=== PATIENT | male | born 1940 | race Caucasian/White ===

== ENCOUNTER 2016-05-14 07:29 | Day surgery (SDC) | payer MEDICARE, OTHER ==
--- NOTE | 2016-05-09 17:04 | PREOPHP ---
DATE OF ADMISSION: 05/14/2016 HISTORY OF PRESENT ILLNESS: This 75-year-old gentleman is admitted for elective cataract surgery of the right eye. The patient has had progressive deterioration of vision in the right eye for the pa st 2 years without prior history of eye disease or injury. The patient has a positive systemic hist ory for hypertension and hypercholesterolemia. CURRENT MEDICATIONS INCLUDE: 1. Lisinopril. 2. Lipitor. 3. Pletal. 4. Metoprolol. 5. Plavix. 6. Aspirin. The patient has been instructed to discontinue the aspirin and Plavix prior to surgery. ALLERGIES: THERE ARE NO KNOWN ALLERGIES. PHYSICAL EXAMINATION: Visual acuity best corrected is hand motion vision in the right eye and 20/60 in the left eye. Slit lamp examination reveals anterior cortical nuclear sclerotic and posterior s ubcapsular cataract changes in the right eye creating a near mature cataract. The left eye has ante rior cortical and nuclear sclerotic cataract opacities. Applanation tonometry is 15 mmHg. Examinat ion of the retina is obscured by the advanced cataract and the left eye appears within normal limits . DIAGNOSIS: Cataract, right eye. PLAN: Cataract extraction with lens implant, right eye. The risks and alternatives to the surgery have been discussed with the patient as well as the limitation of prognosis due to the inability to see the retina in the right eye. The patient understands this and agrees to proceed with surgery in hopes of obtaining improvement of visual acuity leading to a greater ability to perform activities of daily living. Dictated By: KAMILAH DE LA CRUZ/LILY Conf#: [id number] DID#: [id number]
[~2016-05-14] VITALS: Ht 172.7 cm; Wt 56.3 kg
[2016-05-14] VITALS (7 sets, daily range): BP systolic 136–166; BP diastolic 61–74; PULSE 52–60; RESP 16–24; Ht 172.7 cm; Wt 56.3 kg
[~2016-05-14 07:29] MED LIST: ACET-141 PO; ASPI-535 PO; ATOR10TA65 PO; CILO50TA PO; CLOP75TA19 PO; ERGO500014 PO; FOLI-49 PO; LISI-313 PO; METO-448 PO
--- NOTE | 2016-05-14 08:17 | HPN ---
Date/Time of Note Date/Time of Note DATE: 05/14/16 TIME: 08:17 Interval H&P Admission Note Pt. seen H&P reviewed: No system changes KAMILAH PASCUAL MD May 14, 2016 08:17
[2016-05-14] MEDS ORDERED: TROPICAMIDE 1% 2 ML OPH OPER SCH (08:30)
[2016-05-14] MEDS ORDERED: CIPROFLOXACIN 0.3% 2.5 ML OPH OPER SCH (08:30)
[2016-05-14] MEDS ORDERED: CYCLOPENTOLATE/PHENYLEPH 2 ML OPH OPER SCH (08:30)
[2016-05-14] MEDS ORDERED: DICLOFENAC 0.1% 2.5 ML OPH OPER SCH (08:30)
[2016-05-14] MEDS ORDERED: LISI10TA2 PO (08:40)
[2016-05-14] MEDS ORDERED: PROPOFOL 20 ML ONE (11:49)
[2016-05-14] MEDS ORDERED: CEFAZOLIN 1 GM INJ INJ ONE (11:53)
[2016-05-14] MEDS ORDERED: DEXAMETHASONE 4 MG/ML 1 ML INJ INJ ONE (11:53)
[2016-05-14] MEDS ORDERED: CARBACHOL 0.01% 1.5 ML OPH INJ INJ ONE (11:54)
[2016-05-14] MEDS ORDERED: HYALURONATE/CHONDROITIN 1ML OPH INJ ONE (12:10)
[2016-05-14] MEDS ORDERED: DEXAMETHASONE 4 MG/ML 1 ML INJ ONE (12:10)
[2016-05-14] MEDS ORDERED: LIDOCAINE 4% (MPF) 5 ML INJ ONE (12:10)
[2016-05-14] MEDS ORDERED: CARBACHOL 0.01% 1.5 ML OPH INJ ONE (12:11)
--- NOTE | 2016-05-14 12:45 | OPR ---
DATE OF OPERATION: 05/14/2016 PREOPERATIVE DIAGNOSIS: Mature cataract, right eye. POSTOPERATIVE DIAGNOSIS: Mature cataract, right eye. OPERATION PERFORMED: Cataract extraction with lens implant, right eye. SURGEON: Kamilah eVnegas MD ANESTHESIA: Dr. Abel OPERATION: Phacoemulsification with posterior chamber intraocular lens implant, right eye. PROCEDURE: The patient was brought to the operating room and placed on the table with an IV in plac e and the patient attached to an personnel monitor. Oxygen was given via face mask. After some intravenous sedation was administered, local anesthesia was given using Xylocaine 2% with epinephrine, mixed with Marcaine 0.5%. This was given in a lid block and retrobulbar injection. The patient was then prepped and draped in the usual sterile manner. A wire lid speculum was inserted between the lids of the right eye. A Superblade was used to enter t he anterior chamber at the corneoscleral limbus at the 10:30 o'clock position. A separate incision w as made using a 3.0-mm keratome which entered the corneoscleral junction at the 12 o'clock position. Through this 3-mm opening, an irrigating cystitome was introduced into the anterior chamber. The ch madison was filled with Viscoat and an anterior capsulotomy was performed. Balanced salt solution was then used for hydrodissection of the lens. A phacoemulsification handpiece was then brought into th e field and introduced into the anterior chamber. The lens nucleus was emulsified using a deep groov e and cracking the nucleus into quadrants. Following this, each quadrant was aspirated and emulsifie d at the pupillary margin. After this was completed, the irrigation/aspiration handpiece was brought to the field, introduced i nto the posterior chamber, and the lens cortical material was removed. When this was completed, radha tional Viscoat was injected into the anterior and posterior chambers. When performing the lens nuclear phacoemulsification, a higher power setting was used in order to em ulsify the mature cataract. Lens power used was a 20.5 diopter posterior chamber intraocular lens ( [employer] [id number]) was then injected into the posterior chamber using the lens injector system. After the leading haptic was introduced into the capsular bag and the lens optic was present in the center of the eye, the injector was removed and the trailing haptic was grasped with non-toothed fo rceps and introduced into the capsular fold superiorly. A Sinskey hook was then used to rotate the i ntraocular lens so that the lips were oriented in the horizontal meridian. One 10-0 nylon suture was placed across the wound. Prior to tying, the irrigation/aspiration handpiece was reintroduced into the anterior chamber to re move the Viscoat. Miochol was instilled to constrict the pupil, and then the 10-0 nylon suture was t ied. The ends were cut short and then the knot was buried. Then, 0.5 mL of dexamethasone and 0.5 mL of Ancef were injected into the sub-Tenon space in the infe rior fornix. Ciloxan drops were then placed on the surface of the eye. The speculum was removed and a patch was applied. The patient then left the operating room in satisfactory condition. Dictated By: KAMILAH DE LA CRUZ/LILY Conf#: [id number] DID#: [id number]
== END 2016-05-14 13:24 | disposition home or self-care (01) ==
LOC: SDS 07:29
PROVIDERS: ATTEND Ophthalmology
DX: H25.11 Age-related nuclear cataract, right eye (principal); I10 Essential (primary) hypertension; E78.00 Pure hypercholesterolemia, unspecified
CPT/HCPCS: 66984; J0690; J1100; V2632

== ENCOUNTER → 2018-02-02 | Outpatient (CLI) | END | disposition home or self-care (01) ==